=== PATIENT | female | born 1975 | race Caucasian/White ===

== ENCOUNTER → 2018-03-30 | Outpatient (CLI) | payer OTHER ==
[~2018-03-30] MED LIST: ADVAIR HFA 230M12 GM INH; BREO ELLIPTA 11 EACH IH; HYDROCODONE-AP1 EAC6 PO; IBUPROFEN 800800 M1 PO; MEDROLDOSEPACK PO; MOBIC15 MG PO; MULTIVITAMINS1 EAC7 PO; PROAIR RESPICL90 MCG INH; SINGULAIR 10 MG10 M1 PO; [UNRECOGNIZED DRUG - OTHER] PO
== END ==
LOC: M.RAD 15:52
DX: Z12.31 Encounter for screening mammogram for malignant neoplasm of breast (principal); M54.5 Low back pain

== ENCOUNTER → 2018-04-14 | Outpatient (CLI) | payer OTHER | LOC: M.MRI 04-08 17:30 | DX: M51.17 Intervertebral disc disorders with radiculopathy, lumbosacral region (principal); Q89.9 Congenital malformation, unspecified; J45.909 Unspecified asthma, uncomplicated; Z79.899 Other long term (current) drug therapy ==

== ENCOUNTER → 2018-06-11 | Outpatient (CLI) | payer OTHER ==
--- NOTE | 2018-07-01 16:20 | PAINCON ---
[facility] [address] [place] [address] PAIN MANAGEMENT CONSULTATION Name: ANGELA HUNT Room: [facility] KeeshaAdia#: [id number] Admission: 06/11/18 Attend Phys: Wilmer Sanchez MD Discharge: Date of : 71 Report #: [id number] THIS REPORT FOR: //name// CC: MICHELLE ESPOSITO DO Michelle Sanchez DATE OF SERVICE: 06/11/2018 CHIEF COMPLAINT: "Pain in the low back and down in my sciatic nerve when I ride in a car." HISTORY OF PRESENT ILLNESS: The patient is a 42-year-old female who has been referred to the Pain Clinic for evaluation of back and leg pain. The patient states that she has had pain and discomfort in her low back and hip. Notes that the pain is worse when she is riding a car. Notes that the pain starts in the lower portion of her back, radiates down the posterior portion of her leg and becomes more problematic. She describes it as sciatic nerve pain. Most of the pain can be worse when she is lying on her back. Pain is improved when she lies on her side with a pillow between her legs. Notes that stretching and massage can be helpful as well. Describes it as steady, constant, periodic, gnawing, and sharp. Rates it as a 6-7 today. Denies any trauma. She has not had back surgery. She feels that physical therapy would be efficacious and would like to undertake that option. She had an MRI and was told that she has a tear in the disk in her lower back at L4-L5. Also, she has some muscular pain in the left posterior portion of her back in the L5 lateral back. Pressure in this area can cause some pain and discomfort, which is focal at that level. When the pain radiates down into her left foot, it makes running difficult. The patient is a very active person, exercises quite a bit. She has noted some loss in flexibility. Feels that she may have some arthritis going on. She has some soreness in multiple joints. She has run marathons and stays active with running. ALLERGIES: No known drug allergies. MEDICATIONS: ProAir, Zyrtec 10 mg, Advair Diskus 250/50 one puff b.i.d., Singulair 10 mg, multivitamins, Myzilra 1 tablet. PAST MEDICAL HISTORY: Bradycardia, heart rate in the 40s, -- history of running with lifelong slow heart rate, sciatica, and asthma. PAST SURGICAL HISTORY: Breast surgery bilateral in 2010, breast implants, hernia repair in 2011, mesh, wisdom tooth extraction in 1996. FAMILY HISTORY: Prostate cancer in father, degenerative joint disease in father, Alzheimer disease in maternal grandfather, arthritis in grandmother, [place] [address] PAIN MANAGEMENT CONSULTATION Name: ANGELA HUNT Room: [facility]#: [id number] Admission: 06/11/18 Attend Phys: Wilmer Sanchez MD Discharge: Date of : 71 Report #: [id number] degenerative joint disease in 2 sons and a daughter. 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 REVIEW OF SYSTEMS: Generally good health, fatigue, weakness, headaches, earaches, sore throat, asthma, joint pain, joint stiffness, muscle cramps, back pain, numbness and tingling sensation. LABORATORY AND DIAGNOSTIC DATA: MRI of the lumbar spine dated 04/14/2018: 1. L4-L5. There is an annular tear with a broad-based central disk protrusion. The central spinal canal is not grossly narrow. There is no evidence of neural foraminal stenosis. 2. L5-S1. There is a left paracentral disk protrusion measuring 1 cm x 8 mm, mildly impinging on the left S1 nerve root against the facet. The central spinal canal is not grossly narrow. There is no evidence for neural foraminal stenosis. PAIN CLINIC ASSESSMENT: 1. Osteoarthritis: The patient is not being treated for osteoarthritis, but does have a number of joint sorer. She has not been treated for rheumatoid arthritis. 2. Height 5 feet 4 inches, weight 160 pounds, BMI is 27. 3. Vital signs: Blood pressure 117/61, heart rate 50, respiratory rate 16, room air saturation 98%, temperature 98.3. 4. Pain score: 6/10. 5. Fall risk: The patient has not fallen in the last 3 months. 6. Blood thinner: The patient is not on a blood thinning medication. 7. Hypertension: The patient is not being treated for hypertension. 8. Opioid: The patient is not on opioid medications. 9. Risk assessment tool: Low for use of opioid medication. 10. Functional assessment tool: 70. 11. Recreational drug use: The patient denies use of recreational drugs. 12. Alcohol: The patient denies use of alcoholic beverages. PHYSICAL EXAMINATION: GENERAL: The patient is a well-developed, well-nourished, white female. She appears her stated age. She is alert and oriented x 3. Her affect is appropriate. Speech is fluent. HEENT: Normocephalic, atraumatic. Extraocular eye muscles intact. Sclerae nonicteric. Mucous membranes are moist. NECK: Without adenopathy or JVD. HEART: Regular rate, bradycardia with good upswing in the pulses in the radial artery. LUNGS: Clear to auscultation without rhonchi or rales. ABDOMEN: Nontender. Bowel sounds are present. MUSCULOSKELETAL: Upper extremity muscle strength is judged to be 5/5 [place] [address] PAIN MANAGEMENT CONSULTATION Name: ANGELA HUNT Room: [facility]#: [id number] Admission: 06/11/18 Attend Phys: Wilmer Sanchez MD Discharge: Date of : 71 Report #: [id number] major muscle groups in the upper extremity. Deep tendon reflexes +1 for the biceps and triceps. 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 The patient is without significant scoliosis, kyphosis or lordosis. Lower extremity muscle strength is judged to be 5/5 for the major muscle groups. Standing and right and left lateral tilting caused some increased pain on the left side. Left and right lateral rotation were not problematic. Lumbar extension was not problematic. The patient has some pain and discomfort to palpation in the left posterior superior iliac spine area in the L5-S1 area. She complains of some pain that radiates down the posterior portion of her leg in the L5-S1 distribution down into her foot when riding a car in certain positions. IMPRESSION: 1. History of lumbar radiculopathy in the L5-S1 with nerve root protrusion measuring 1 cm x 8 mm mildly impinging on the S1 nerve root against the facet. 2. Asthma. 3. Bradycardia, heart rate in the 40s, -- history of running with lifelong slow heart rate. 4. Sciatica. RECOMMENDATIONS: We discussed treatment options with the patient. A model was used to indicate the area of probable pathology. The patient's MRI was reviewed with her in person. Pathology was discussed and noted. The patient appears to understand the findings on her MRI. We will have the patient try physical therapy. She is quite encouraged to give this a trial and continue with conservative measures. We will have her try a Medrol Dosepak, she will take it as described. We discussed the risks and benefits of use of nonsteroidal anti-inflammatory medications, which could cause problems with GI as well as renal problems and hypertension. She will try Mobic, a script for 15 mg 1 p.o. daily has been written. Hopefully, she will notice that things improve. If her pain continues to be problematic in the future, the possibility of an epidural steroid injection definitely remains an option. She will follow up in the near future. A script for physical therapy has been written. <ELECTRONICALLY SIGNED> By: Wilmer Sanchez MD 07/01/18 [id number]. Mushtaq Sanchez MD /nt
== END ==
LOC: M.PC 05-26 08:10
DX: M54.16 Radiculopathy, lumbar region (principal); J45.909 Unspecified asthma, uncomplicated; R00.1 Bradycardia, unspecified; M54.30 Sciatica, unspecified side

== ENCOUNTER → 2020-11-24 | Outpatient (CLI) | payer OTHER | LOC: M.RAD 09:30 | PROVIDERS: ATTEND Family Medicine | DX: Z12.31 Encounter for screening mammogram for malignant neoplasm of breast (principal) ==